=== PATIENT | female | born 1965 | race Caucasian/White ===

== ENCOUNTER → 2018-12-05 | Outpatient (CLI) | payer OTHER ==
[~2018-12-05] MED LIST: ACET325T14 PO; ASPI-496 PO; CEPH-368 PO; FENO134C PO; FIBER PO; GLIM1TAB2 PO; GLIM2TAB2 PO; LISI-167 PO; LISI-170 PO; LOVA10TA PO; MEGE40TA PO; METF10002 PO; METF500T17 PO; TRAZ50TA66 PO
== END | disposition home or self-care (01) ==
LOC: CFH 10:27
PROVIDERS: ATTEND Family Medicine
DX: Z12.31 Encounter for screening mammogram for malignant neoplasm of breast (principal)
CPT/HCPCS: 77067